=== PATIENT | male | born 1955 | race African-American/Black ===

== ENCOUNTER 2018-10-25 03:15 | Emergency (ER) | payer OTHER ==
[~2018-10-25] VITALS: Ht 170.2 cm; Wt 73.0 kg
[~2018-10-25 03:15] MED LIST: ADULT LOW DOSE81 MG PO; AMBIEN 5 MG TABL5 M1 PO; AMBIENCR PO; AMITIZA 24 MCG24 MC1 PO; AZITHROMYCIN 2250 MG PO; CIPRO250 M1 PO; CIPRO500 MG PO; CIPROFLOXACIN500 M1 PO; CLONAZEPAM 0.50.5 M1 PO; CORTAID28 GM TP; CRANBERRY200 MG PO; DESYREL50 MG PO; DOXYCYCLINE; ELMIRON PO; FISH OIL 1,001000 MG PO; FLEXERIL PO; FLOMAX PO; HYDROCODON-ACE1 EACH; HYDROXYZINE HCL10 M1 PO; LEVAQUIN 250 M250 MG; LEVAQUIN 500 M500 MG PO; LEVOTHYROXINE0.05 MG PO; LEXAPRO 10 MG T10 M1 PO; LINZESS290 MCG PO; LUNESTA2 MG; MACROBID 100 M100 M1 PO; MECLIZINE 25 MG25 M1 PO; MEDROLDOSEPACK PO; MOBIC15 MG PO; MOTION RELIEF25 MG PO; MUCINEX D TABL1 EAC1 PO; MUCINEX600 MG PO; MULTIVITAMINS; MYRBETRIQ50 MG PO; NASACORT10.8 ML NS; NASONEX; NORCO 5-325 TA1 EACH PO; NORFLEX100 MG PO; PEPCID20 MG PO; PERCOCET 5-3251 EACH PO; PREDNISOLONE 5 M5 M1 PO; PREDNISONE 20 M20 MG PO; PROBIOTIC1 EAC1 PO; PYRIDIUM200 M1 PO; TAMSULOSIN HCL0.4 M1 PO; VALIUM5 MG PO; VESICARE10 M1; VITAMIN D1000 UNI1 PO; XANAX XR1 MG PO; ZYRTEC10 M2 PO
[2018-10-25] MEDS ORDERED: CLARITIN10 MG PO (03:20)
[2018-10-25] MEDS ORDERED: VITAMIN B122500 MCG PO (03:21)
[2018-10-25 03:48] LABS: ABSOLUTE NEUTROPHILS 8.2 thou/uL (1.4-8.2); BASOPHILS 0.3 % (0.0-2.0); EOSINOPHILS 1.5 % (0.0-3.0); HEMATOCRIT 41.9 % (42.0-52.0); HEMOGLOBIN 13.5 gm/dL (14.0-18.0); LYMPHOCYTES 8.5 % (24.0-44.0); MCHC 32.2 g/dL (28.0-37.0); MCV 86.9 fL (80.0-100.0); MONOCYTES 5.7 % (1.0-8.0); PLATELET COUNT 177 thou/uL (150-400); RBC 4.82 mil/uL (4.50-6.00); RDW 12.8 % (10.5-14.5); WBC 9.7 thou/uL (4.0-11.0)
[2018-10-25 03:52] LABS: CALCIUM 8.9 mg/dL (8.5-10.1); POTASSIUM 3.5 mmol/L (3.5-5.1)
[2018-10-25 03:58] LABS: DIRECT BILIRUBIN 0.1 mg/dL (<0.1-0.3); TOTAL BILIRUBIN 0.4 mg/dL (<0.1-1.0); TOTAL PROTEIN 7.5 g/dL (6.4-8.2)
[2018-10-25 04:56] LABS: URINE BILIRUBIN NEGATIVE (Negative); URINE BLOOD NEGATIVE (Negative); URINE CLARITY CLEAR; URINE COLOR YELLOW; URINE GLUCOSE-RANDOM* NEGATIVE (Negative); URINE KETONES NEGATIVE (Negative); URINE LEUKOCYTES-REFLEX NEGATIVE (Negative); URINE NITRITE-REFLEX NEGATIVE (Negative); URINE PROTEIN (DIPSTICK) NEGATIVE (Negative); URINE SPECIFIC GRAVITY >= 1.030 (1.005-1.035); URINE UROBILINOGEN 0.2 E.U./dl (0.2-1.0)
[2018-10-25] MEDS ORDERED: ZOFRAN ODT4 MG PO (05:27)
[2018-10-25] MEDS ORDERED: BENTYL 20 MG TA20 M1 PO (05:27)
[2018-10-25 05:29] VITALS: BP 149/89
== END 2018-10-25 05:36 | disposition home or self-care (01) ==
LOC: ER 03:15
PROVIDERS: Emergency Medicine
DX: R10.9 Unspecified abdominal pain (principal); R11.2 Nausea with vomiting, unspecified; G47.00 Insomnia, unspecified; E03.9 Hypothyroidism, unspecified; Z88.8 Allergy status to other drugs, medicaments and biological substances; Z88.1 Allergy status to other antibiotic agents; Z88.2 Allergy status to sulfonamides

== ENCOUNTER 2019-10-07 12:24 | Emergency (ER) | payer OTHER ==
[~2019-10-07] VITALS: Ht 195.6 cm; Wt 74.8 kg
[~2019-10-07 12:24] MED LIST changes: +BENTYL 20 MG TA20 M1 PO; +CLARITIN10 MG PO; +VITAMIN B122500 MCG PO; +ZOFRAN ODT4 MG PO
[2019-10-07] MEDS ORDERED: OMEPRAZOLE 20 M20 M1 PO (12:36)
[2019-10-07 12:38] LABS: URINE BILIRUBIN NEGATIVE (Negative); URINE BLOOD NEGATIVE (Negative); URINE CLARITY CLEAR; URINE COLOR YELLOW; URINE GLUCOSE-RANDOM* NEGATIVE (Negative); URINE KETONES NEGATIVE (Negative); URINE NITRITE-REFLEX NEGATIVE (Negative); URINE PROTEIN (DIPSTICK) NEGATIVE (Negative); URINE UROBILINOGEN 0.2 E.U./dl (0.2-1.0)
[2019-10-07 12:39] LABS: URINE LEUKOCYTES-REFLEX 1+ (Negative)
[2019-10-07 12:50] LABS: BACTERIA-REFLEX None Seen /HPF (None Seen); CASTS None Seen /LPF (None Seen); CRYSTALS None Seen /LPF (None Seen); SQUAMOUS None Seen /LPF (0-3); URINE RBC None Seen /HPF (0-2); URINE WBC-REFLEX 0-5 Rare /HPF (0-5)
[2019-10-07 12:55] LABS: BASOPHILS 0.9 % (0.0-2.0); EOSINOPHILS 2.2 % (0.0-3.0); HEMATOCRIT 43.9 % (42.0-52.0); HEMOGLOBIN 14.1 gm/dL (14.0-18.0); LYMPHOCYTES 39.6 % (24.0-44.0); MCHC 32.1 g/dL (28.0-37.0); MCV 87.2 fL (80.0-100.0); POLYS 50.3 % (36.0-66.0); RBC 5.03 mil/uL (4.50-6.00); RDW 12.7 % (10.5-14.5); WBC 3.9 thou/uL (4.0-11.0)
[2019-10-07 13:33] LABS: PLATELET COUNT 141 thou/uL (150-400)
[2019-10-07 13:59] LABS: CALCIUM 9.2 mg/dL (8.5-10.1); CREATININE 0.9 mg/dL (0.7-1.3); POTASSIUM 3.9 mmol/L (3.5-5.1)
[2019-10-07 14:58] VITALS: BP 131/74
[2019-10-07] MEDS ORDERED: CIPRO500 MG PO (14:58)
[2019-10-07] MEDS ORDERED: ONDANSETRON HCL4 M2 PO (14:59)
== END 2019-10-07 14:58 | disposition home or self-care (01) ==
LOC: ER 12:24
PROVIDERS: Physician Assistant
DX: N39.0 Urinary tract infection, site not specified (principal); N40.0 Benign prostatic hyperplasia without lower urinary tract symptoms; E03.9 Hypothyroidism, unspecified; Z88.1 Allergy status to other antibiotic agents; Z88.2 Allergy status to sulfonamides; Z88.8 Allergy status to other drugs, medicaments and biological substances

== ENCOUNTER 2020-07-14 11:05 | Emergency (ER) | payer OTHER ==
[~2020-07-14] VITALS: Ht 170.2 cm; Wt 69.4 kg
[~2020-07-14 11:05] MED LIST changes: +OMEPRAZOLE 20 M20 M1 PO; +ONDANSETRON HCL4 M2 PO
[2020-07-14 11:23] LABS: URINE BILIRUBIN NEGATIVE (Negative); URINE BLOOD NEGATIVE (Negative); URINE CLARITY CLEAR; URINE COLOR YELLOW; URINE GLUCOSE-RANDOM* NEGATIVE (Negative); URINE KETONES NEGATIVE (Negative); URINE LEUKOCYTES-REFLEX TRACE (Negative); URINE NITRITE-REFLEX NEGATIVE (Negative); URINE PROTEIN (DIPSTICK) NEGATIVE (Negative); URINE SPECIFIC GRAVITY <= 1.005 (1.005-1.035); URINE UROBILINOGEN 0.2 E.U./dl (0.2-1.0)
[2020-07-14 11:39] LABS: HEMATOCRIT 42.5 % (42.0-52.0); MCH 29.1 pg (26.0-34.0); RBC 4.83 mil/uL (4.50-6.00); RDW 12.5 % (10.5-14.5)
[2020-07-14] MEDS ORDERED: LORAZEPAM 0.50.5 MG PO (11:40)
[2020-07-14] MEDS ORDERED: CARISOPRODOL 3350 M1 PO (11:47)
[2020-07-14 11:48] LABS: CALCIUM 9.2 mg/dL (8.5-10.1); CREATININE 1.1 mg/dL (0.7-1.3); POTASSIUM 3.7 mmol/L (3.5-5.1)
[2020-07-14 13:23] VITALS: BP 123/76
--- NOTE | 2020-07-15 08:23 | EKG ---
[facility] [address] ELECTROCARDIOGRAM REPORT Name: KOJO HARTMANNISHANTWyatt Gomez Room #: DEP [facility]#: [id number] Admission: 07/14/20 Attend Phys: Discharge: 07/14/20 Date of : 53 Report #: [id number] THIS REPORT FOR: cc: Lupe Ochoa K. Steven DO Lundgren, Craig H. MD [facility] THIS REPORT FOR: //name// [facility] ED Test Date: 2020-07-14 Test Time: 11:24:21 Pat Name: NISHANT HARTMAN Department: Room: Gender: Professor Of Business: [facility] : 1955 Requested By: Claudio Alonzo Order Number: [id number] MD: Deven Mix Measurements Intervals Inlet Rate: 70 P: 57 DE: 177 QRS: 22 QRSD: 96 T: 57 QT: 376 QTc: 406 Interpretive Statements Sinus rhythm RSR' in V1 or V2, right VCD Compared to ECG 06/25/2011 19:12:49 Sinus bradycardia no longer present Electronically Signed On 07-15-2020 8:23:18 CDT by Deven Mix [email or web address] <ELECTRONICALLY SIGNED> By: Deven Mix MD, [facility] 07/15/20 0823 [id number] Deven Mix MD, [facility] /EPI
== END 2020-07-14 13:25 | disposition home or self-care (01) ==
LOC: ER 11:05
PROVIDERS: Emergency Medicine
DX: R35.0 Frequency of micturition (principal); R11.0 Nausea; R42 Dizziness and giddiness; E03.9 Hypothyroidism, unspecified; Z79.899 Other long term (current) drug therapy; Z88.1 Allergy status to other antibiotic agents; Z88.2 Allergy status to sulfonamides; Z88.8 Allergy status to other drugs, medicaments and biological substances

== ENCOUNTER 2020-08-12 14:01 | Emergency (ER) | payer OTHER ==
[~2020-08-12] VITALS: Ht 170.2 cm; Wt 69.4 kg
[~2020-08-12 14:01] MED LIST changes: +CARISOPRODOL 3350 M1 PO; +LORAZEPAM 0.50.5 MG PO
[2020-08-12 14:38] LABS: URINE BILIRUBIN NEGATIVE (Negative); URINE BLOOD NEGATIVE (Negative); URINE CLARITY CLEAR; URINE COLOR YELLOW; URINE GLUCOSE-RANDOM* NEGATIVE (Negative); URINE KETONES NEGATIVE (Negative); URINE LEUKOCYTES-REFLEX NEGATIVE (Negative); URINE NITRITE-REFLEX NEGATIVE (Negative); URINE PROTEIN (DIPSTICK) NEGATIVE (Negative); URINE SPECIFIC GRAVITY >= 1.030 (1.005-1.035); URINE UROBILINOGEN 0.2 E.U./dl (0.2-1.0)
[2020-08-12 14:43] LABS: ABSOLUTE NEUTROPHILS 2.5 thou/uL (1.4-8.2); BASOPHILS 1.2 % (0.0-2.0); EOSINOPHILS 3.8 % (0.0-3.0); HEMATOCRIT 41.7 % (42.0-52.0); HEMOGLOBIN 13.4 gm/dL (14.0-18.0); LYMPHOCYTES 36.9 % (24.0-44.0); MCH 28.4 pg (26.0-34.0); MCV 88.8 fL (80.0-100.0); MONOCYTES 11.2 % (1.0-8.0); PLATELET COUNT 176 thou/uL (150-400); POLYS 46.9 % (36.0-66.0); RDW 13.2 % (10.5-14.5); WBC 5.3 thou/uL (4.0-11.0)
[2020-08-12 14:51] LABS: CALCIUM 9.2 mg/dL (8.5-10.1); CREATININE 0.8 mg/dL (0.7-1.3); POTASSIUM 4.3 mmol/L (3.5-5.1)
[2020-08-12 14:57] LABS: ALBUMIN 4.8 g/dL (3.4-5.0); TOTAL BILIRUBIN 0.2 mg/dL (0.2-1.0); TOTAL PROTEIN 7.2 g/dL (6.4-8.2)
[2020-08-12] MEDS ORDERED: LEVSIN0.125 MG PO (17:33)
[2020-08-12] MEDS ORDERED: LINZESS290 MCG PO (17:33)
[2020-08-12 17:44] VITALS: BP 137/85
== END 2020-08-12 17:45 | disposition home or self-care (01) ==
LOC: ER 14:01
PROVIDERS: Emergency Medicine
DX: K59.00 Constipation, unspecified (principal); H92.01 Otalgia, right ear; Z79.899 Other long term (current) drug therapy; Z88.1 Allergy status to other antibiotic agents; Z88.2 Allergy status to sulfonamides; Z88.8 Allergy status to other drugs, medicaments and biological substances

== ENCOUNTER 2020-08-20 16:59 | Emergency (ER) | payer OTHER ==
[~2020-08-20] VITALS: Ht 170.2 cm; Wt 69.4 kg
[~2020-08-20 16:59] MED LIST changes: +LEVSIN0.125 MG PO
[2020-08-20 17:00] VITALS: BP 146/98
[2020-08-20] MEDS ORDERED: PREDNISONE 20 M20 MG PO (17:25)
== END 2020-08-20 17:35 | disposition home or self-care (01) ==
LOC: ER 16:59
DX: R07.0 Pain in throat (principal); E03.9 Hypothyroidism, unspecified; Z79.899 Other long term (current) drug therapy; Z88.1 Allergy status to other antibiotic agents; Z88.2 Allergy status to sulfonamides; Z88.5 Allergy status to narcotic agent; Z88.8 Allergy status to other drugs, medicaments and biological substances

== ENCOUNTER 2021-02-25 10:23 | Emergency (ER) | payer OTHER ==
[~2021-02-25] VITALS: Ht 170.2 cm; Wt 70.3 kg
[2021-02-25] MEDS ORDERED: FAMOTIDINE 10 M10 MG PO (10:46)
[2021-02-25 10:47] LABS: URINE BILIRUBIN NEGATIVE (Negative); URINE BLOOD NEGATIVE (Negative); URINE CLARITY CLEAR; URINE COLOR YELLOW; URINE GLUCOSE-RANDOM* NEGATIVE (Negative); URINE KETONES NEGATIVE (Negative); URINE NITRITE-REFLEX NEGATIVE (Negative); URINE PROTEIN (DIPSTICK) NEGATIVE (Negative); URINE SPECIFIC GRAVITY <= 1.005 (1.005-1.035); URINE UROBILINOGEN 0.2 E.U./dl (0.2-1.0)
[2021-02-25 10:48] LABS: URINE LEUKOCYTES-REFLEX 1+ (Negative)
[2021-02-25 10:58] LABS: BACTERIA-REFLEX None Seen /HPF (None Seen); CASTS None Seen /LPF (None Seen); CRYSTALS None Seen /LPF (None Seen); SQUAMOUS None Seen /LPF (0-3); URINE RBC None Seen /HPF (0-2); URINE WBC-REFLEX 0-5 Rare /HPF (0-5)
[2021-02-25] MEDS ORDERED: CIPROFLOXACIN500 M1 PO (11:19)
[2021-02-25 11:39] VITALS: BP 127/77
== END 2021-02-25 11:46 | disposition home or self-care (01) ==
LOC: ER 10:23
PROVIDERS: Emergency Medicine
DX: N39.0 Urinary tract infection, site not specified (principal); E03.9 Hypothyroidism, unspecified; Z79.899 Other long term (current) drug therapy; Z88.1 Allergy status to other antibiotic agents; Z88.2 Allergy status to sulfonamides; Z88.8 Allergy status to other drugs, medicaments and biological substances

== ENCOUNTER 2021-10-21 21:20 | Emergency (ER) | payer OTHER ==
[~2021-10-21] VITALS: Ht 170.2 cm; Wt 68.0 kg
[~2021-10-21 21:20] MED LIST changes: +FAMOTIDINE 10 M10 MG PO
[2021-10-21] MEDS ORDERED: MECLIZINE HCL25 M1 PO (21:42)
[2021-10-21] MEDS ORDERED: CYCLOBENZAPRINE5 MG PO (21:42)
[2021-10-21] MEDS ORDERED: VITAMIN B122500 MCG PO (21:43)
[2021-10-21 21:51] LABS: URINE BILIRUBIN NEGATIVE (Negative); URINE BLOOD NEGATIVE (Negative); URINE CLARITY CLEAR; URINE COLOR YELLOW; URINE GLUCOSE-RANDOM* NEGATIVE (Negative); URINE KETONES NEGATIVE (Negative); URINE LEUKOCYTES-REFLEX TRACE (Negative); URINE NITRITE-REFLEX NEGATIVE (Negative); URINE PROTEIN (DIPSTICK) NEGATIVE (Negative); URINE UROBILINOGEN 0.2 E.U./dl (0.2-1.0)
[2021-10-21] MEDS ORDERED: LEVOFLOXACIN750 MG PO (22:10)
[2021-10-21 23:31] VITALS: BP 134/84
== END 2021-10-21 23:34 | disposition home or self-care (01) ==
LOC: ER 21:20
PROVIDERS: Nurse Practitioner
DX: R35.0 Frequency of micturition (principal); R51.9 Headache, unspecified; F51.04 Psychophysiologic insomnia; E03.9 Hypothyroidism, unspecified; Z88.1 Allergy status to other antibiotic agents; Z88.2 Allergy status to sulfonamides; Z88.8 Allergy status to other drugs, medicaments and biological substances; Z79.899 Other long term (current) drug therapy; Z98.890 Other specified postprocedural states